=== PATIENT | male | born 1930 | race Caucasian/White ===

== ENCOUNTER 2017-10-21 03:47 | Inpatient (IN) | payer MEDICARE ==
[~2017-10-21] VITALS: Ht 167.6 cm; Wt 71.6 kg
[~2017-10-21 03:47] MED LIST: OMEP40CA37 PO; ONDA4TAB6 PO
[2017-10-21 04:12] LABS: BASOPHILS % (AUTO) 0.1 % (0-1); EOSINOPHILS % (AUTO) 0.4 % (0-6); HEMATOCRIT 39.6 % (42.0-52.0); HEMOGLOBIN 13.4 g/dl (14.0-17.9); LYMPHOCYTES # (AUTO) 0.3 X10'3 (1.1-4.8); LYMPHOCYTES % (AUTO) 3.3 % (21-51); MEAN CORPUSCULAR HGB CONC 33.9 % (33.0-36.5); MEAN CORPUSCULAR VOLUME 100.1 FL (78-98); MEAN PLATELET VOLUME 9.6 FL (7.4-10.4); MONOCYTES # (AUTO) 0.4 X10'3 (0-0.9); MONOCYTES % (AUTO) 4.3 % (2-12); NEUTROPHILS # (AUTO) 9.6 X10'3 (1.8-7.7); NEUTROPHILS % (AUTO) 91.9 % (42-75); PLATELET COUNT 148 X10'3 (140-440); RED BLOOD COUNT 3.96 X10'6 (4.70-6.10); RED CELL DISTRIBUTION WIDTH 14.4 % (11.5-14.5); WHITE BLOOD COUNT 10.4 X10'3 (4.5-11.0)
[2017-10-21 04:26] LABS: ALANINE AMINOTRANSFERASE 94 U/L (12-78); ALBUMIN 3.3 G/DL (3.4-5.0); ALBUMIN/GLOBULIN RATIO 0.9 (1.1-1.5); ALKALINE PHOSPHATASE 180 IU/L (46-116); ANION GAP 7 (8-16); ASPARTATE AMINO TRANSFERASE 208 U/L (10-37); BILIRUBIN,TOTAL 1.9 MG/DL (0.1-1.0); BLOOD UREA NITROGEN 13 MG/DL (7-18); CHLORIDE 103 MMOL/L (99-107); CREATININE 0.93 MG/DL (0.60-1.10); GLUCOSE 138 MG/DL (70-104); MAGNESIUM 2.2 MG/DL (1.5-2.4); POTASSIUM 3.3 MMOL/L (3.5-5.1); SODIUM 140 MMOL/L (135-145); TOTAL CARBON DIOXIDE 30.1 MMOL/L (24-32); TOTAL PROTEIN 6.8 G/DL (6.4-8.2); eGFR 77 ML/MIN
[2017-10-21] MEDS ORDERED: iohexol 300mg/ml 100ml inj. ONE (04:41)
[2017-10-21 04:51] LABS: CLARITY,URINE CLEAR (Clear); COLOR,URINE YELLOW (Yellow); GLUCOSE, URINE NEGATIVE (Neg); KETONES,URINE NEGATIVE (Neg); LEUKOCYTE ESTERASE ,URINE NEGATIVE (Neg); NITRITES, URINE NEGATIVE (Neg); OCCULT BLOOD,URINE TRACE-LYSED (Neg); PROTEIN,URINE TRACE mg/dl (Neg)
[2017-10-21 05:06] LABS: UA COLLECTION TYPE CLN CATCH MIDSTREAM
[2017-10-21 05:29] LABS: BACTERIA,URINE FEW /HPF (Neg); MUCUS STRANDS FEW /LPF (Neg); SQUAMOUS EPITHELIAL CELL,UR FEW /LPF (FEW); WBC,URINE 0-4 /HPF (0-4)
[2017-10-21] MEDS ORDERED: normal saline 1000ML IV soln IVB ONE ×2 (06:05→06:30)
[2017-10-21] MEDS ORDERED: piperacillin/tazo 3.375gm/50ml 50 ML IV ONE (06:25)
[2017-10-21] MEDS ORDERED: bisacodyl 10mg suppository rectal RC ONE (06:25)
[2017-10-21] MEDS ORDERED: normal saline 1000ml 1,000 ML IV ONE (06:27)
[2017-10-21] MEDS ORDERED: morphine 4 MG/ML inj SYRINge IV PRN (06:40)
[2017-10-21] MEDS ORDERED: potassium 10mEq/100ml NS w/LIDOcaine (10mg/bag) IV ONE (06:45)
[2017-10-21 06:55] LABS: LIPASE 8130 U/L (73-393)
[2017-10-21] MEDS ORDERED: magnesium 4gm in 100ml NS 100 ML IV PRN (07:10)
[2017-10-21] MEDS ORDERED: magnesium 1gm/100ml D5W IVPB 50 ML IV PRN (07:10)
[2017-10-21] MEDS ORDERED: ondansetron/PF 4mg/2ml inj IV PRN (07:10)
[2017-10-21] MEDS ORDERED: potassium Cl 40MEQ/NS 500ml 500 ML IV PRN ×2 (07:10)
[2017-10-21] MEDS ORDERED: acetaminophen 650mg rectal suppository RC PRN (07:10)
[2017-10-21] MEDS ORDERED: bisacodyl 10mg suppository rectal RC PRN (07:10)
[2017-10-21] MEDS ORDERED: SYN0.088T PO (07:11)
[2017-10-21] MEDS ORDERED: [UNRECOGNIZED DRUG - REMARK] PO (07:11)
[2017-10-21] MEDS ORDERED: TAMS0.4C32 PO (07:40)
[2017-10-21] MEDS: K and/or MAG REPLACEMENT MC SCH (08:00)
[2017-10-21] MEDS: piperacillin/tazo 3.375gm/50ml 50 ML IV SCH ×2 (08:00→16:00)
[2017-10-21] MEDS ORDERED: sincalide inj 1.36 MCG in normal saline 50ml IV soln 50 ML IV ONE (08:00)
[2017-10-21 09:30] VITALS: BP 142/76
[2017-10-21] MEDS: heparin, porcine 5000 units/ml vial SQ SCH ×2 (10:00→16:00)
[2017-10-21] MEDS: normal saline 1000ml 1,000 ML IV SCH ×4 (10:45→22:07)
[2017-10-21 11:00] VITALS: BP 106/70
[2017-10-21 11:36] LABS: LIPASE 6420 U/L (73-393)
[2017-10-21] MEDS ORDERED: morphine 4 MG/ML inj SYRINge IV ONE (14:55)
[2017-10-21] MEDS ORDERED: morphine 2 MG/ML inj. syringe ONE (14:58)
[2017-10-21 15:00] VITALS: BP 122/59
[2017-10-21] MEDS ORDERED: morphine 2 MG/ML inj. syringe IV ONE (15:20)
[2017-10-21] MEDS: lactobacillus rhamnosus 10,000 MMU CELLS/CAPSULE PO SCH (20:00)
[2017-10-21] MEDS: tamsulosin 0.4mg capsule PO SCH (20:20)
[2017-10-21 23:00] VITALS: BP 102/58
[2017-10-22] VITALS (15 sets, daily range): BP systolic 96–138; BP diastolic 41–89
[2017-10-22] MEDS: piperacillin/tazo 3.375gm/50ml 50 ML IV SCH ×4 (00:01→23:39)
[2017-10-22] MEDS: heparin, porcine 5000 units/ml vial SQ SCH ×4 (00:01→23:51)
[2017-10-22] MEDS: normal saline 1000ml 1,000 ML IV SCH (02:37)
[2017-10-22 05:43] LABS: BASOPHILS % (AUTO) 0.5 % (0-1); EOSINOPHILS # (AUTO) 0.1 X10'3 (0-0.9); EOSINOPHILS % (AUTO) 2.3 % (0-6); HEMOGLOBIN 11.1 g/dl (14.0-17.9); LYMPHOCYTES # (AUTO) 0.6 X10'3 (1.1-4.8); MEAN CORPUSCULAR HEMOGLOBIN 33.6 PG (27.0-31.0); MEAN CORPUSCULAR HGB CONC 33.7 % (33.0-36.5); MEAN CORPUSCULAR VOLUME 99.8 FL (78-98); MEAN PLATELET VOLUME 10.3 FL (7.4-10.4); MONOCYTES # (AUTO) 0.3 X10'3 (0-0.9); NEUTROPHILS # (AUTO) 4.6 X10'3 (1.8-7.7); NEUTROPHILS % (AUTO) 81.2 % (42-75); PLATELET COUNT 116 X10'3 (140-440); RED BLOOD COUNT 3.31 X10'6 (4.70-6.10); RED CELL DISTRIBUTION WIDTH 14.9 % (11.5-14.5); WHITE BLOOD COUNT 5.7 X10'3 (4.5-11.0)
[2017-10-22 05:58] LABS: ALANINE AMINOTRANSFERASE 310 U/L (12-78); ALBUMIN 2.5 G/DL (3.4-5.0); ALBUMIN/GLOBULIN RATIO 0.8 (1.1-1.5); ALKALINE PHOSPHATASE 214 IU/L (46-116); ANION GAP 7 (8-16); ASPARTATE AMINO TRANSFERASE 320 U/L (10-37); BILIRUBIN,TOTAL 1.8 MG/DL (0.1-1.0); BLOOD UREA NITROGEN 21 MG/DL (7-18); BUN/CREATININE RATIO 24.7 (5.4-32.0); CALCIUM 7.5 MG/DL (8.5-10.1); CHLORIDE 108 MMOL/L (99-107); CREATININE 0.85 MG/DL (0.60-1.10); GLUCOSE 67 MG/DL (70-104); LIPASE 814 U/L (73-393); MAGNESIUM 1.8 MG/DL (1.5-2.4); POTASSIUM 3.4 MMOL/L (3.5-5.1); SODIUM 141 MMOL/L (135-145); TOTAL CARBON DIOXIDE 26.2 MMOL/L (24-32); TOTAL PROTEIN 5.6 G/DL (6.4-8.2); eGFR 85 ML/MIN
[2017-10-22] MEDS: lactobacillus rhamnosus 10,000 MMU CELLS/CAPSULE PO SCH ×2 (07:25→20:36)
[2017-10-22] MEDS: levoTHYROXINE 25mcg tablet PO SCH (07:26)
[2017-10-22] MEDS: K and/or MAG REPLACEMENT MC SCH (08:00)
[2017-10-22] MEDS ORDERED: MIDAZolam 5mg/5ml vial ONE (14:55)
[2017-10-22] MEDS ORDERED: fentaNYL/PF 50MCG/1 ML 2ML syringe ONE ×2 (14:55→16:15)
[2017-10-22] MEDS ORDERED: LIDOcaine Viscous 15ml cup ONE (14:55)
[2017-10-22] MEDS ORDERED: iohexol 300 MG/1 ML 50ml polymer ONE (14:56)
[2017-10-22] MEDS ORDERED: glucagon, human recombinant 1mg kit ONE (14:56)
[2017-10-22] MEDS: tamsulosin 0.4mg capsule PO SCH (20:36)
[2017-10-23 03:00] VITALS: BP 95/52
[2017-10-23 05:53] LABS: BASOPHILS % (AUTO) 0.3 % (0-1); EOSINOPHILS # (AUTO) 0.1 X10'3 (0-0.9); EOSINOPHILS % (AUTO) 1.8 % (0-6); HEMATOCRIT 32.2 % (42.0-52.0); HEMOGLOBIN 10.9 g/dl (14.0-17.9); LYMPHOCYTES # (AUTO) 0.5 X10'3 (1.1-4.8); LYMPHOCYTES % (AUTO) 10.5 % (21-51); MEAN CORPUSCULAR HEMOGLOBIN 33.7 PG (27.0-31.0); MEAN CORPUSCULAR HGB CONC 33.7 % (33.0-36.5); MEAN CORPUSCULAR VOLUME 100.2 FL (78-98); MEAN PLATELET VOLUME 10.5 FL (7.4-10.4); MONOCYTES # (AUTO) 0.4 X10'3 (0-0.9); MONOCYTES % (AUTO) 7.3 % (2-12); NEUTROPHILS # (AUTO) 4.2 X10'3 (1.8-7.7); NEUTROPHILS % (AUTO) 80.1 % (42-75); PLATELET COUNT 114 X10'3 (140-440); RED BLOOD COUNT 3.22 X10'6 (4.70-6.10); RED CELL DISTRIBUTION WIDTH 14.7 % (11.5-14.5); WHITE BLOOD COUNT 5.2 X10'3 (4.5-11.0)
[2017-10-23 06:00] VITALS: BP 137/68
[2017-10-23 06:09] LABS: ALANINE AMINOTRANSFERASE 212 U/L (12-78); ALBUMIN 2.5 G/DL (3.4-5.0); ALBUMIN/GLOBULIN RATIO 0.8 (1.1-1.5); ALKALINE PHOSPHATASE 177 IU/L (46-116); ANION GAP 8 (8-16); ASPARTATE AMINO TRANSFERASE 151 U/L (10-37); BILIRUBIN,TOTAL 0.9 MG/DL (0.1-1.0); BLOOD UREA NITROGEN 28 MG/DL (7-18); BUN/CREATININE RATIO 30.8 (5.4-32.0); CALCIUM 7.3 MG/DL (8.5-10.1); CHLORIDE 111 MMOL/L (99-107); CREATININE 0.91 MG/DL (0.60-1.10); GLUCOSE 103 MG/DL (70-104); LIPASE 177 U/L (73-393); MAGNESIUM 1.7 MG/DL (1.5-2.4); POTASSIUM 3.9 MMOL/L (3.5-5.1); SODIUM 144 MMOL/L (135-145); TOTAL CARBON DIOXIDE 24.8 MMOL/L (24-32); TOTAL PROTEIN 5.5 G/DL (6.4-8.2); eGFR 79 ML/MIN
[2017-10-23 06:35] LABS: PLATELET ESTIMATE DECREASED
[2017-10-23] MEDS: lactobacillus rhamnosus 10,000 MMU CELLS/CAPSULE PO SCH ×2 (07:44→20:30)
[2017-10-23] MEDS: piperacillin/tazo 3.375gm/50ml 50 ML IV SCH ×3 (07:44→23:50)
[2017-10-23] MEDS: levoTHYROXINE 25mcg tablet PO SCH (07:45)
[2017-10-23] MEDS: heparin, porcine 5000 units/ml vial SQ SCH ×3 (07:46→23:49)
[2017-10-23] MEDS: K and/or MAG REPLACEMENT MC SCH (08:00)
[2017-10-23] MEDS ORDERED: polyethylene glycol 3350 17gm powd pack PO PRN (10:05)
[2017-10-23 11:00] VITALS: BP 120/60
[2017-10-23 15:00] VITALS: BP 134/84
[2017-10-23 19:00] VITALS: BP 121/81
[2017-10-23] MEDS: tamsulosin 0.4mg capsule PO SCH (20:30)
[2017-10-23 23:00] VITALS: BP 97/54
[2017-10-24 03:00] VITALS: BP 96/70
[2017-10-24 05:48] LABS: BASOPHILS % (AUTO) 0.6 % (0-1); EOSINOPHILS # (AUTO) 0.3 X10'3 (0-0.9); EOSINOPHILS % (AUTO) 6.3 % (0-6); HEMATOCRIT 33.6 % (42.0-52.0); HEMOGLOBIN 11.5 g/dl (14.0-17.9); LYMPHOCYTES # (AUTO) 0.7 X10'3 (1.1-4.8); LYMPHOCYTES % (AUTO) 14.9 % (21-51); MEAN CORPUSCULAR HEMOGLOBIN 33.8 PG (27.0-31.0); MEAN CORPUSCULAR HGB CONC 34.2 % (33.0-36.5); MEAN CORPUSCULAR VOLUME 98.9 FL (78-98); MEAN PLATELET VOLUME 10.1 FL (7.4-10.4); MONOCYTES # (AUTO) 0.4 X10'3 (0-0.9); MONOCYTES % (AUTO) 7.9 % (2-12); NEUTROPHILS # (AUTO) 3.3 X10'3 (1.8-7.7); NEUTROPHILS % (AUTO) 70.3 % (42-75); PLATELET COUNT 122 X10'3 (140-440); RED CELL DISTRIBUTION WIDTH 14.7 % (11.5-14.5); WHITE BLOOD COUNT 4.7 X10'3 (4.5-11.0)
[2017-10-24 05:52] LABS: ALANINE AMINOTRANSFERASE 168 U/L (12-78); ALBUMIN 2.7 G/DL (3.4-5.0); ALBUMIN/GLOBULIN RATIO 0.9 (1.1-1.5); ALKALINE PHOSPHATASE 167 IU/L (46-116); ANION GAP 5 (8-16); ASPARTATE AMINO TRANSFERASE 88 U/L (10-37); BLOOD UREA NITROGEN 18 MG/DL (7-18); BUN/CREATININE RATIO 21.2 (5.4-32.0); CALCIUM 8.2 MG/DL (8.5-10.1); CHLORIDE 108 MMOL/L (99-107); CREATININE 0.85 MG/DL (0.60-1.10); GLUCOSE 98 MG/DL (70-104); LIPASE 147 U/L (73-393); MAGNESIUM 1.7 MG/DL (1.5-2.4); POTASSIUM 3.9 MMOL/L (3.5-5.1); SODIUM 141 MMOL/L (135-145); TOTAL CARBON DIOXIDE 27.7 MMOL/L (24-32); TOTAL PROTEIN 5.8 G/DL (6.4-8.2); eGFR 85 ML/MIN
[2017-10-24 06:00] VITALS: BP 117/64
[2017-10-24] MEDS: K and/or MAG REPLACEMENT MC SCH (08:00)
[2017-10-24] MEDS: levoTHYROXINE 25mcg tablet PO SCH (08:43)
[2017-10-24] MEDS: piperacillin/tazo 3.375gm/50ml 50 ML IV SCH ×2 (08:43→16:49)
[2017-10-24] MEDS: heparin, porcine 5000 units/ml vial SQ SCH ×2 (08:44→16:00)
[2017-10-24] MEDS: lactobacillus rhamnosus 10,000 MMU CELLS/CAPSULE PO SCH ×2 (08:44→20:06)
[2017-10-24 11:00] VITALS: BP 119/66
[2017-10-24] MEDS ORDERED: ceFAZolin 1GM/D5W- ADD-VANTAGE 50 ML IV ONE (11:17)
[2017-10-24] MEDS ORDERED: ceFAZolin 1000mg inj ONE (11:17)
[2017-10-24] MEDS ORDERED: LIDOcaine 1% w/EPI 1:100,000 30ml vial (MDV) ONE (11:17)
[2017-10-24] MEDS ORDERED: midazolam 2 mg/2 ml injection ONE (11:17)
[2017-10-24] MEDS ORDERED: fentaNYL/PF 50MCG/1 ML 2ML syringe ONE (11:17)
[2017-10-24] MEDS ORDERED: verapamil 2.5 mg/ml inj IV ONE (12:41)
[2017-10-24 18:00] VITALS: BP 107/66
[2017-10-24] MEDS: tamsulosin 0.4mg capsule PO SCH (20:06)
[2017-10-24 22:00] VITALS: BP 119/76
[2017-10-24] MEDS: morphine 4 MG/ML inj SYRINge IV PRN (22:20)
[2017-10-25] VITALS (18 sets, daily range): BP systolic 105–154; BP diastolic 60–105
[2017-10-25] MEDS: piperacillin/tazo 3.375gm/50ml 50 ML IV SCH ×3 (00:09→16:05)
[2017-10-25] MEDS: heparin, porcine 5000 units/ml vial SQ SCH ×3 (00:10→16:00)
[2017-10-25 06:01] LABS: ALANINE AMINOTRANSFERASE 135 U/L (12-78); ALBUMIN 2.7 G/DL (3.4-5.0); ALBUMIN/GLOBULIN RATIO 0.8 (1.1-1.5); ALKALINE PHOSPHATASE 156 IU/L (46-116); ANION GAP 8 (8-16); ASPARTATE AMINO TRANSFERASE 55 U/L (10-37); BILIRUBIN,TOTAL 0.8 MG/DL (0.1-1.0); BLOOD UREA NITROGEN 18 MG/DL (7-18); CALCIUM 7.6 MG/DL (8.5-10.1); CHLORIDE 106 MMOL/L (99-107); GLUCOSE 111 MG/DL (70-104); MAGNESIUM 1.4 MG/DL (1.5-2.4); POTASSIUM 3.8 MMOL/L (3.5-5.1); SODIUM 142 MMOL/L (135-145); TOTAL PROTEIN 5.9 G/DL (6.4-8.2); eGFR 80 ML/MIN
[2017-10-25 06:42] LABS: BASOPHILS % (AUTO) 0.5 % (0-1); EOSINOPHILS % (AUTO) 2.8 % (0-6); HEMATOCRIT 31.4 % (42.0-52.0); HEMOGLOBIN 10.6 g/dl (14.0-17.9); LYMPHOCYTES % (AUTO) 9.2 % (21-51); MEAN CORPUSCULAR HEMOGLOBIN 33.7 PG (27.0-31.0); MEAN CORPUSCULAR HGB CONC 33.9 % (33.0-36.5); MEAN CORPUSCULAR VOLUME 99.3 FL (78-98); MEAN PLATELET VOLUME 9.9 FL (7.4-10.4); MONOCYTES % (AUTO) 8.5 % (2-12); NEUTROPHILS # (AUTO) 4.5 X10'3 (1.8-7.7); PLATELET COUNT 130 X10'3 (140-440); RED BLOOD COUNT 3.16 X10'6 (4.70-6.10); RED CELL DISTRIBUTION WIDTH 14.4 % (11.5-14.5); WHITE BLOOD COUNT 5.7 X10'3 (4.5-11.0)
[2017-10-25 06:43] LABS: EOSINOPHILS # (AUTO) 0.2 X10'3 (0-0.9); LYMPHOCYTES # (AUTO) 0.5 X10'3 (1.1-4.8); MONOCYTES # (AUTO) 0.5 X10'3 (0-0.9)
[2017-10-25] MEDS: lactobacillus rhamnosus 10,000 MMU CELLS/CAPSULE PO SCH ×2 (07:49→20:57)
[2017-10-25] MEDS: levoTHYROXINE 25mcg tablet PO SCH (07:49)
[2017-10-25] MEDS: K and/or MAG REPLACEMENT MC SCH (08:00)
[2017-10-25] MEDS ORDERED: iohexol 300mg/ml 100ml inj. ONE (09:42)
[2017-10-25] MEDS ORDERED: fentaNYL/PF 50MCG/1 ML 2ML syringe IV PRN (13:55)
[2017-10-25] MEDS ORDERED: LIDOcaine 1%/PF 5ML 10 MG/ML VIAL SQ ONE (13:55)
[2017-10-25] MEDS ORDERED: midazolam 2 mg/2 ml injection IV PRN (13:55)
[2017-10-25] MEDS ORDERED: midazolam 2 mg/2 ml injection ONE (14:10)
[2017-10-25] MEDS ORDERED: fentaNYL/PF 50MCG/1 ML 2ML syringe ONE (14:11)
[2017-10-25] MEDS ORDERED: LIDOcaine 1%/PF 5ML 10 MG/ML VIAL ONE ×2 (14:27→14:49)
[2017-10-25] MEDS ORDERED: LIDOcaine 1% (10mg/ml) 2ml vial ONE (14:50)
[2017-10-25] MEDS: morphine 4 MG/ML inj SYRINge IV PRN (17:43)
[2017-10-25] MEDS: ceFAZolin 1GM/D5W- ADD-VANTAGE 50 ML IV SCH (20:54)
[2017-10-25] MEDS: tamsulosin 0.4mg capsule PO SCH (20:56)
[2017-10-25] MEDS: HYDROcodone/acetaminophen 10/325mg tab PO PRN (20:58)
[2017-10-25] MEDS: magnesium Cl slow-release 64mg tablet PO PRN (21:23)
[2017-10-26] MEDS: piperacillin/tazo 3.375gm/50ml 50 ML IV SCH ×4 (00:39→23:51)
[2017-10-26] MEDS: heparin, porcine 5000 units/ml vial SQ SCH ×4 (00:39→23:51)
[2017-10-26 03:00] VITALS: BP 105/62
[2017-10-26] MEDS: ceFAZolin 1GM/D5W- ADD-VANTAGE 50 ML IV SCH ×2 (03:34→10:57)
[2017-10-26 05:31] LABS: BASOPHILS % (AUTO) 0 % (0-1); EOSINOPHILS % (AUTO) 0.4 % (0-6); HEMATOCRIT 30.9 % (42.0-52.0); HEMOGLOBIN 10.4 g/dl (14.0-17.9); LYMPHOCYTES # (AUTO) 0.5 X10'3 (1.1-4.8); LYMPHOCYTES % (AUTO) 6.4 % (21-51); MEAN CORPUSCULAR HEMOGLOBIN 33.5 PG (27.0-31.0); MEAN CORPUSCULAR HGB CONC 33.6 % (33.0-36.5); MEAN CORPUSCULAR VOLUME 99.8 FL (78-98); MEAN PLATELET VOLUME 9.7 FL (7.4-10.4); MONOCYTES # (AUTO) 0.4 X10'3 (0-0.9); MONOCYTES % (AUTO) 5.5 % (2-12); NEUTROPHILS # (AUTO) 6.9 X10'3 (1.8-7.7); NEUTROPHILS % (AUTO) 87.7 % (42-75); PLATELET COUNT 117 X10'3 (140-440); WHITE BLOOD COUNT 7.9 X10'3 (4.5-11.0)
[2017-10-26 05:49] LABS: ALANINE AMINOTRANSFERASE 92 U/L (12-78); ALBUMIN 2.4 G/DL (3.4-5.0); ALBUMIN/GLOBULIN RATIO 0.7 (1.1-1.5); ALKALINE PHOSPHATASE 127 IU/L (46-116); ANION GAP 5 (8-16); ASPARTATE AMINO TRANSFERASE 37 U/L (10-37); BILIRUBIN,TOTAL 0.6 MG/DL (0.1-1.0); BLOOD UREA NITROGEN 16 MG/DL (7-18); BUN/CREATININE RATIO 19.5 (5.4-32.0); CALCIUM 7.5 MG/DL (8.5-10.1); CHLORIDE 104 MMOL/L (99-107); CREATININE 0.82 MG/DL (0.60-1.10); GLUCOSE 126 MG/DL (70-104); MAGNESIUM 1.5 MG/DL (1.5-2.4); POTASSIUM 3.5 MMOL/L (3.5-5.1); SODIUM 140 MMOL/L (135-145); TOTAL CARBON DIOXIDE 31.1 MMOL/L (24-32); TOTAL PROTEIN 5.7 G/DL (6.4-8.2); eGFR 89 ML/MIN
[2017-10-26 06:51] VITALS: BP 117/63
[2017-10-26] MEDS ORDERED: potassium Cl 40MEQ/NS 500ml 500 ML IV PRN ×2 (08:05)
[2017-10-26] MEDS ORDERED: potassium Cl 20 mEq SR tablet PO PRN (08:05)
[2017-10-26] MEDS: levoTHYROXINE 25mcg tablet PO SCH (08:15)
[2017-10-26] MEDS: magnesium Cl slow-release 64mg tablet PO PRN (08:15)
[2017-10-26] MEDS: lactobacillus rhamnosus 10,000 MMU CELLS/CAPSULE PO SCH ×2 (08:16→20:27)
[2017-10-26] MEDS: potassium Cl 20 mEq SR tablet PO PRN ×2 (08:16→15:57)
[2017-10-26] MEDS: HYDROcodone/acetaminophen 5mg/325mg tablet PO PRN ×2 (08:16→15:57)
[2017-10-26] MEDS: K and/or MAG REPLACEMENT MC SCH (08:16)
[2017-10-26] MEDS ORDERED: potassium Cl 20 mEq SR tablet PO STA (09:28)
[2017-10-26] MEDS ORDERED: furosemide 40mg/4ml inj IV ONE (09:30)
[2017-10-26 11:00] VITALS: BP 92/50
[2017-10-26 15:00] VITALS: BP 119/60
[2017-10-26 19:00] VITALS: BP 101/63
[2017-10-26] MEDS: tamsulosin 0.4mg capsule PO SCH (20:27)
[2017-10-26 23:00] VITALS: BP 102/61
[2017-10-26] MEDS: morphine 4 MG/ML inj SYRINge IV PRN (23:56)
[2017-10-27 03:00] VITALS: BP 102/61
[2017-10-27 05:28] LABS: BASOPHILS % (AUTO) 0.4 % (0-1); EOSINOPHILS # (AUTO) 0.2 X10'3 (0-0.9); EOSINOPHILS % (AUTO) 3.4 % (0-6); HEMATOCRIT 30.5 % (42.0-52.0); HEMOGLOBIN 10.5 g/dl (14.0-17.9); LYMPHOCYTES # (AUTO) 0.6 X10'3 (1.1-4.8); LYMPHOCYTES % (AUTO) 9.5 % (21-51); MEAN CORPUSCULAR HEMOGLOBIN 34.2 PG (27.0-31.0); MEAN CORPUSCULAR HGB CONC 34.5 % (33.0-36.5); MEAN CORPUSCULAR VOLUME 99.2 FL (78-98); MEAN PLATELET VOLUME 10.4 FL (7.4-10.4); MONOCYTES # (AUTO) 0.4 X10'3 (0-0.9); MONOCYTES % (AUTO) 6.3 % (2-12); NEUTROPHILS # (AUTO) 5.2 X10'3 (1.8-7.7); NEUTROPHILS % (AUTO) 80.4 % (42-75); PLATELET COUNT 125 X10'3 (140-440); RED BLOOD COUNT 3.08 X10'6 (4.70-6.10); RED CELL DISTRIBUTION WIDTH 14.3 % (11.5-14.5); WHITE BLOOD COUNT 6.5 X10'3 (4.5-11.0)
[2017-10-27 05:56] LABS: ALANINE AMINOTRANSFERASE 62 U/L (12-78); ALBUMIN 2.4 G/DL (3.4-5.0); ALBUMIN/GLOBULIN RATIO 0.7 (1.1-1.5); ALKALINE PHOSPHATASE 130 IU/L (46-116); ANION GAP 3 (8-16); ASPARTATE AMINO TRANSFERASE 28 U/L (10-37); BILIRUBIN,TOTAL 0.5 MG/DL (0.1-1.0); BLOOD UREA NITROGEN 17 MG/DL (7-18); BUN/CREATININE RATIO 22.7 (5.4-32.0); CALCIUM 7.8 MG/DL (8.5-10.1); CHLORIDE 102 MMOL/L (99-107); CREATININE 0.75 MG/DL (0.60-1.10); GLUCOSE 109 MG/DL (70-104); MAGNESIUM 1.5 MG/DL (1.5-2.4); POTASSIUM 3.7 MMOL/L (3.5-5.1); SODIUM 139 MMOL/L (135-145); TOTAL CARBON DIOXIDE 33.6 MMOL/L (24-32); TOTAL PROTEIN 5.9 G/DL (6.4-8.2); eGFR > 90 ML/MIN
[2017-10-27 06:52] VITALS: BP 125/97
[2017-10-27] MEDS: lactobacillus rhamnosus 10,000 MMU CELLS/CAPSULE PO SCH ×2 (07:17→20:45)
[2017-10-27] MEDS: piperacillin/tazo 3.375gm/50ml 50 ML IV SCH ×3 (07:18→23:08)
[2017-10-27] MEDS: levoTHYROXINE 25mcg tablet PO SCH (07:18)
[2017-10-27] MEDS: heparin, porcine 5000 units/ml vial SQ SCH ×3 (07:24→23:08)
[2017-10-27] MEDS: K and/or MAG REPLACEMENT MC SCH (07:50)
[2017-10-27 08:12] LABS: LARGE PLATELETS FEW; PLATELET ESTIMATE DECREASED
[2017-10-27] MEDS: morphine 4 MG/ML inj SYRINge IV PRN ×3 (08:12→20:46)
[2017-10-27 11:00] VITALS: BP_SYST 108; BP_SYST 117; BP_DIAS 57; BP_DIAS 63
[2017-10-27 15:00] VITALS: BP 105/60
[2017-10-27 19:00] VITALS: BP 152/74
[2017-10-27] MEDS: tamsulosin 0.4mg capsule PO SCH (20:45)
[2017-10-27 23:00] VITALS: BP 107/67
[2017-10-28 03:00] VITALS: BP 123/66
[2017-10-28 06:11] LABS: MAGNESIUM 1.6 MG/DL (1.5-2.4); POTASSIUM 3.8 MMOL/L (3.5-5.1)
[2017-10-28 07:00] VITALS: BP 138/73
[2017-10-28] MEDS: heparin, porcine 5000 units/ml vial SQ SCH (07:32)
[2017-10-28] MEDS: K and/or MAG REPLACEMENT MC SCH (07:32)
[2017-10-28] MEDS: lactobacillus rhamnosus 10,000 MMU CELLS/CAPSULE PO SCH (07:35)
[2017-10-28] MEDS: levoTHYROXINE 25mcg tablet PO SCH (07:35)
[2017-10-28] MEDS: HYDROcodone/acetaminophen 10/325mg tab PO PRN (07:36)
[2017-10-28] MEDS: piperacillin/tazo 3.375gm/50ml 50 ML IV SCH (07:37)
[2017-10-28 11:00] VITALS: BP 92/51
[2017-10-28] MEDS ORDERED: AMOX-422 PO (11:46)
== END 2017-10-28 13:40 | disposition home health service (06) | DRG 242 ==
LOC: ER 03:48 → ED HOLD 07:07 → PCU 3S 09:15
PROVIDERS: ADMIT Family Medicine; ATTEND Family Medicine
PROC: BW211ZZ Computerized Tomography (CT Scan) of Abdomen and Pelvis using Low Osmolar Contrast (ICD-10-PCS; 2017-10-21)
PROC: CF241ZZ Tomographic (Tomo) Nuclear Medicine Imaging of Gallbladder using Technetium 99m (Tc-99m) (ICD-10-PCS; 2017-10-21)
PROC: 0FJD8ZZ Inspection of Pancreatic Duct, Via Natural or Artificial Opening Endoscopic (ICD-10-PCS; 2017-10-22)
PROC: BF181ZZ Fluoroscopy of Pancreatic Ducts using Low Osmolar Contrast (ICD-10-PCS; 2017-10-22)
PROC: 0JH606Z Insertion of Pacemaker, Dual Chamber into Chest Subcutaneous Tissue and Fascia, Open Approach (ICD-10-PCS; 2017-10-24)
PROC: 02H63JZ Insertion of Pacemaker Lead into Right Atrium, Percutaneous Approach (ICD-10-PCS; 2017-10-24)
PROC: 02HK3JZ Insertion of Pacemaker Lead into Right Ventricle, Percutaneous Approach (ICD-10-PCS; 2017-10-24)
PROC: 0F9430Z Drainage of Gallbladder with Drainage Device, Percutaneous Approach (ICD-10-PCS; principal; 2017-10-25)
PROC: BW211ZZ Computerized Tomography (CT Scan) of Abdomen and Pelvis using Low Osmolar Contrast (ICD-10-PCS; 2017-10-25)
DX: I49.5 Sick sinus syndrome (principal); K85.10 Biliary acute pancreatitis without necrosis or infection; K80.00 Calculus of gallbladder with acute cholecystitis without obstruction; E89.0 Postprocedural hypothyroidism; Z96.653 Presence of artificial knee joint, bilateral; K59.00 Constipation, unspecified; K21.9 Gastro-esophageal reflux disease without esophagitis; K57.90 Diverticulosis of intestine, part unspecified, without perforation or abscess without bleeding; M19.90 Unspecified osteoarthritis, unspecified site; R74.0 Nonspecific elevation of levels of transaminase and lactic acid dehydrogenase [LDH]; K83.8 Other specified diseases of biliary tract; I27.20 Pulmonary hypertension, unspecified; R79.89 Other specified abnormal findings of blood chemistry; N40.0 Benign prostatic hyperplasia without lower urinary tract symptoms; Z79.899 Other long term (current) drug therapy; Z80.9 Family history of malignant neoplasm, unspecified
CPT/HCPCS: 33208; 36415; 47490; 71045; 71046; 74018; 74177; 74181; 75989; 76700; 78227; 80053; 81001; 83605; 83615; 83690; 83735; 84132; 84145; 84443; 84484; 85025; 86301; 87070; 93005; 93306; 96360; 97110; 97116; 97162; 97530; 99152; 99153; 99285; A4565; A4620; A6257; A6258; A9537; C1729; C1785; C1894; C1898; G0500; J0690; J1610; J1644; J1940; J2001; J2250; J2270; J2543; J2805; J3010; J3480; J3490; J7030; J7040; Q9967

== ENCOUNTER 2018-04-23 15:55 | Inpatient (IN) | payer MEDICARE | END 2018-04-27 14:21 | disposition home or self-care (01) | LOC: ER 15:55 → ED HOLD 19:00 → SUR 3N 04-24 17:45 | DX: J96.01 Acute respiratory failure with hypoxia (principal); J18.9 Pneumonia, unspecified organism; E03.9 Hypothyroidism, unspecified; D64.9 Anemia, unspecified; N40.0 Benign prostatic hyperplasia without lower urinary tract symptoms; I48.91 Unspecified atrial fibrillation ==

== ENCOUNTER 2019-06-03 11:12 | Inpatient (IN) | payer MEDICARE ==
[~2019-06-03] VITALS: Ht 167.6 cm; Wt 65.9 kg
[~2019-06-03 11:12] MED LIST changes: +ACIT10CA2; +AMIO200T62 PO; +CARV-50 PO; +COU1T PO; +DUPI300S INJ; +FURO-150 PO; -OMEP40CA37 PO; -ONDA4TAB6 PO; +POTA20TA19 PO; +SYN0.088T PO; +TAMS0.4C32 PO
[2019-06-03] MEDS ORDERED: aspirin 81mg tab.chew PO ONE (11:35)
[2019-06-03] MEDS ORDERED: ipratropium/albuterol 3ml nebule NEB ONE (11:40)
[2019-06-03 12:08] LABS: BASOPHILS # (AUTO) 0.1 X10'3 (0-0.2); BASOPHILS % (AUTO) 0.7 % (0-1); EOSINOPHILS # (AUTO) 0.1 X10'3 (0-0.9); EOSINOPHILS % (AUTO) 1.5 % (0-6); HEMATOCRIT 37.6 % (42.0-52.0); HEMOGLOBIN 12.6 g/dl (14.0-17.9); LYMPHOCYTES # (AUTO) 0.7 X10'3 (1.1-4.8); LYMPHOCYTES % (AUTO) 8.3 % (21-51); MEAN CORPUSCULAR HEMOGLOBIN 35.9 PG (27.0-31.0); MEAN CORPUSCULAR HGB CONC 33.5 g/dL (33.0-36.5); MEAN CORPUSCULAR VOLUME 107.3 FL (78-98); MONOCYTES # (AUTO) 0.7 X10'3 (0-0.9); MONOCYTES % (AUTO) 8.1 % (2-12); NEUTROPHILS # (AUTO) 7.1 X10'3 (1.8-7.7); NEUTROPHILS % (AUTO) 81.4 % (42-75); PLATELET COUNT 220 X10'3 (140-440); RED CELL DISTRIBUTION WIDTH 16.1 % (11.5-14.5); WHITE BLOOD COUNT 8.7 X10'3 (4.5-11.0)
[2019-06-03 12:24] LABS: PARTIAL THROMBOPLASTIN TIME 31 SECONDS (22-32)
[2019-06-03 12:26] LABS: ALANINE AMINOTRANSFERASE 167 U/L (12-78); ALBUMIN 3.4 G/DL (3.4-5.0); ALKALINE PHOSPHATASE 113 IU/L (46-116); ANION GAP 14 (8-16); ASPARTATE AMINO TRANSFERASE 171 U/L (10-37); BILIRUBIN,TOTAL 0.7 MG/DL (0.1-1.0); BLOOD UREA NITROGEN 62 MG/DL (7-18); BUN/CREATININE RATIO 17.9 (5.4-32.0); CALCIUM 8.7 MG/DL (8.5-10.1); CHLORIDE 106 MMOL/L (99-107); CREATININE 3.47 MG/DL (0.60-1.10); GLUCOSE 134 MG/DL (70-104); SODIUM 139 MMOL/L (135-145); TOTAL CARBON DIOXIDE 18.6 MMOL/L (24-32); TOTAL PROTEIN 6.9 G/DL (6.4-8.2); eGFR 17 ML/MIN
[2019-06-03 12:35] LABS: ABG BASE EXCESS -10.3 mmol/L (-2.0-3.0); ABG HCO3 13.7 mmol/L (22.0-26.0); ABG OXYGEN SATURATION 99.3 % (95-98); ABG PCO2 (T) 27.7 mmHg (35.0-45.0); ABG PO2 (T) 322.5 mmHg (83-108); ALLEN'S TEST POSITIVE; FCOHb 0.3 % (0.5-1.5); FLOW 15 L/min; PATIENT TEMPERATURE 38.7; TOTAL HEMOGLOBIN 12.6 G/dl (14.0-17.9)
[2019-06-03 12:35] LABS: D-DIMER 1.81 MG/L FEU (0-0.50)
[2019-06-03] MEDS ORDERED: normal saline 1000ml 1,000 ML IV ONE (12:35)
[2019-06-03 12:36] LABS: LIPASE 239 U/L (73-393); MAGNESIUM 2.1 MG/DL (1.5-2.4)
[2019-06-03] MEDS ORDERED: normal saline 1000ML IV soln IVB ONE (12:45)
[2019-06-03] MEDS ORDERED: acetaminophen 325mg tablet PO PRN (13:15)
[2019-06-03] MEDS ORDERED: furosemide 10 MG/1 ML 10ml inj IV ONE (13:15)
[2019-06-03] MEDS ORDERED: mag hydrox/Alum hydrox/simeth 30ml oral suspension PO PRN (13:15)
[2019-06-03] MEDS ORDERED: magnesium hydroxide 30ml (MOM) UD suspension PO PRN (13:15)
[2019-06-03] MEDS ORDERED: ondansetron/PF 4mg/2ml inj IV PRN (13:15)
[2019-06-03] MEDS ORDERED: METO25TA6 PO (13:37)
[2019-06-03] MEDS ORDERED: TRIA454O TP (13:37)
[2019-06-03] MEDS ORDERED: FEXO180T94 PO (13:37)
[2019-06-03] MEDS ORDERED: ALLO100T PO (13:37)
[2019-06-03] MEDS ORDERED: SPIR25TA5 PO (13:37)
[2019-06-03] MEDS ORDERED: WARF1TAB PO (13:37)
[2019-06-03] MEDS ORDERED: FERR325T32 PO (13:37)
[2019-06-03] MEDS: normal saline 1000ml 1,000 ML IV SCH ×2 (16:10→20:36)
[2019-06-03 18:00] VITALS: BP 99/68
--- NOTE | 2019-06-03 18:24 | NUR ---
Problems reprioritized. Patient report given, questions answered & plan of care reviewed with Naseem RN.
--- NOTE | 2019-06-03 18:30 | NUR ---
Patient in room PCU 3024. I have received report from Daksha SHETH and had the opportunity to ask questions and assume patient care.
[2019-06-03] MEDS: triamcinolone acetonide 0.1% ointment 15gm TP SCH (20:15)
[2019-06-03] MEDS: tamsulosin 0.4mg capsule PO SCH (20:15)
[2019-06-03] MEDS: metoprolol tartrate 25mg tablet PO SCH (20:17)
[2019-06-03 22:00] VITALS: BP 87/62
[2019-06-04] VITALS (10 sets, daily range): BP systolic 85–129; BP diastolic 53–94
[2019-06-04 05:15] LABS: BASOPHILS # (AUTO) 0.1 X10'3 (0-0.2); BASOPHILS % (AUTO) 0.9 % (0-1); EOSINOPHILS # (AUTO) 0.4 X10'3 (0-0.9); EOSINOPHILS % (AUTO) 5.3 % (0-6); HEMATOCRIT 33.4 % (42.0-52.0); HEMOGLOBIN 11.4 g/dl (14.0-17.9); LYMPHOCYTES # (AUTO) 0.7 X10'3 (1.1-4.8); LYMPHOCYTES % (AUTO) 9.6 % (21-51); MEAN CORPUSCULAR HEMOGLOBIN 36.7 PG (27.0-31.0); MEAN CORPUSCULAR HGB CONC 34.1 g/dL (33.0-36.5); MEAN CORPUSCULAR VOLUME 107.5 FL (78-98); MEAN PLATELET VOLUME 8.9 FL (7.4-10.4); MONOCYTES # (AUTO) 0.6 X10'3 (0-0.9); NEUTROPHILS # (AUTO) 5.4 X10'3 (1.8-7.7); NEUTROPHILS % (AUTO) 76.2 % (42-75); PLATELET COUNT 176 X10'3 (140-440); RED BLOOD COUNT 3.11 X10'6 (4.70-6.10); WHITE BLOOD COUNT 7.1 X10'3 (4.5-11.0)
[2019-06-04 05:29] LABS: ALBUMIN 2.9 G/DL (3.4-5.0); ANION GAP 14 (8-16); BLOOD UREA NITROGEN 58 MG/DL (7-18); BUN/CREATININE RATIO 22.5 (5.4-32.0); CHLORIDE 110 MMOL/L (99-107); CREATININE 2.58 MG/DL (0.60-1.10); GLUCOSE 87 MG/DL (70-104); POTASSIUM 4.7 MMOL/L (3.5-5.1); SODIUM 141 MMOL/L (135-145); TOTAL CARBON DIOXIDE 17.5 MMOL/L (24-32); eGFR 24 ML/MIN
--- NOTE | 2019-06-04 06:28 | NUR ---
Patient in room PCU 3024. I have received report from MERYL Gusman and had the opportunity to ask questions and assume patient care.
--- NOTE | 2019-06-04 06:34 | NUR ---
Problems reprioritized. Patient report given, questions answered & plan of care reviewed with Elisabeth SHETH.
[2019-06-04] MEDS: metoprolol tartrate 25mg tablet PO SCH ×2 (08:00→20:26)
[2019-06-04] MEDS: levoTHYROXINE 88mcg tablet PO SCH (08:15)
[2019-06-04] MEDS: loratadine 10mg tablet PO SCH (08:15)
[2019-06-04] MEDS: allopurinol 100mg tablet PO SCH (08:15)
[2019-06-04] MEDS: amiodarone 200mg tablet PO SCH (08:15)
[2019-06-04] MEDS: ferrous sulfate 325mg tablet PO SCH (08:15)
[2019-06-04] MEDS: triamcinolone acetonide 0.1% ointment 15gm TP SCH ×2 (08:18→20:26)
--- NOTE | 2019-06-04 09:55 | NUR ---
New orders from jens to decrease NS to 50mL/hr
[2019-06-04] MEDS: normal saline 1000ml 1,000 ML IV SCH (10:00)
--- NOTE | 2019-06-04 15:41 | NUR ---
Paged Juan A regarding pt SBP in the 80s PAGER ID: [phone] MESSAGE: [id number]: Steve Saenz: Pts SBP has been in the low-mid 80s multiple times & DBP inaudible manually. Pt alert, oriented and conversing. Kindly advise! -Elisabeth [phone]
[2019-06-04] MEDS ORDERED: DOBUTamine-DoBUTrex 500mg/D5W 250 ML IV SCH (15:50)
--- NOTE | 2019-06-04 18:28 | NUR ---
Problems reprioritized. Patient report given, questions answered & plan of care reviewed with MERYL Rios.
--- NOTE | 2019-06-04 18:30 | NUR ---
Patient in room MED 307. I have received report from Elisabeth SHETH and had the opportunity to ask questions and assume patient care.
[2019-06-04] MEDS: tamsulosin 0.4mg capsule PO SCH (20:39)
--- NOTE | 2019-06-04 23:33 | NUR ---
Problems reprioritized. Patient report given, questions answered & plan of care reviewed with Mk SHETH.
[2019-06-05] VITALS (7 sets, daily range): BP systolic 86–135; BP diastolic 58–79
[2019-06-05 03:37] LABS: BASOPHILS # (AUTO) 0.1 X10'3 (0-0.2); BASOPHILS % (AUTO) 0.9 % (0-1); EOSINOPHILS # (AUTO) 0.5 X10'3 (0-0.9); EOSINOPHILS % (AUTO) 6.6 % (0-6); HEMOGLOBIN 10.6 g/dl (14.0-17.9); LYMPHOCYTES # (AUTO) 0.6 X10'3 (1.1-4.8); LYMPHOCYTES % (AUTO) 9.1 % (21-51); MEAN CORPUSCULAR HEMOGLOBIN 36.8 PG (27.0-31.0); MEAN CORPUSCULAR HGB CONC 34.1 g/dL (33.0-36.5); MEAN CORPUSCULAR VOLUME 108.1 FL (78-98); MEAN PLATELET VOLUME 8.8 FL (7.4-10.4); MONOCYTES # (AUTO) 0.5 X10'3 (0-0.9); MONOCYTES % (AUTO) 7.1 % (2-12); NEUTROPHILS # (AUTO) 5.4 X10'3 (1.8-7.7); NEUTROPHILS % (AUTO) 76.3 % (42-75); PLATELET COUNT 164 X10'3 (140-440); RED BLOOD COUNT 2.86 X10'6 (4.70-6.10); RED CELL DISTRIBUTION WIDTH 16.5 % (11.5-14.5); WHITE BLOOD COUNT 7.1 X10'3 (4.5-11.0)
[2019-06-05 03:45] LABS: ALBUMIN 2.7 G/DL (3.4-5.0); ANION GAP 10 (8-16); BLOOD UREA NITROGEN 47 MG/DL (7-18); BUN/CREATININE RATIO 23.3 (5.4-32.0); CALCIUM 7.7 MG/DL (8.5-10.1); CHLORIDE 112 MMOL/L (99-107); CREATININE 2.02 MG/DL (0.60-1.10); GLUCOSE 103 MG/DL (70-104); POTASSIUM 4.4 MMOL/L (3.5-5.1); SODIUM 142 MMOL/L (135-145); TOTAL CARBON DIOXIDE 19.8 MMOL/L (24-32); eGFR 31 ML/MIN
--- NOTE | 2019-06-05 06:39 | NUR ---
Problems reprioritized. Patient report given Pat-RN, questions answered & plan of care reviewed with .
[2019-06-05] MEDS ORDERED: fentaNYL/PF 50MCG/1 ML 2ML syringe IV ONE (07:40)
[2019-06-05] MEDS ORDERED: MIDAZolam 1mg/ml 10ml vial IV ONE (07:40)
--- NOTE | 2019-06-05 07:42 | NUR ---
EVERETTE AND FENTANYL VIALS ORDERED TO PREP FOR CARDIOVERSION PER DR. CHOE
[2019-06-05] MEDS: triamcinolone acetonide 0.1% ointment 15gm TP SCH (08:00)
[2019-06-05] MEDS: metoprolol tartrate 25mg tablet PO SCH (08:00)
[2019-06-05] MEDS: normal saline 1000ml 1,000 ML IV SCH (09:05)
--- NOTE | 2019-06-05 09:09 | NUR ---
DR. CHOE AT BEDSIDE. PATIENT IN SR/PACED 80s. NO NEED FOR CARDIOVERSION. VERSED/FENTANYL ORDERS CANCELLED
--- NOTE | 2019-06-05 09:22 | NUR ---
DR. SINGER AT BEDSIDE. NEW ORDERS RECEIVED: D/C FLUIDS, D/C DOBUTAMINE
--- NOTE | 2019-06-05 09:30 | NUR ---
DR. SINGER INTO SEE PATIENT.GTT TURNED OFF PER ORDER. PLAN IS TO DISCHARGE PATIENT TODAY. HEARTH RHYTHM CONTINUES AT 100% PACED, RATE CONTROLLED.AM PLAN FOR CARDIOVERSION CANCELLED. Addendum: 06/05/19 at 1611 by Francesca Mena RN Amended: Links added.
--- NOTE | 2019-06-05 09:56 | NUR ---
PATIENT AMBULATED W/ PCT 200 FT, TOLERATED WELL, DENIES PAIN/SOB.
[2019-06-05] MEDS: loratadine 10mg tablet PO SCH (10:29)
[2019-06-05] MEDS: amiodarone 200mg tablet PO SCH (10:29)
[2019-06-05] MEDS: levoTHYROXINE 88mcg tablet PO SCH (10:30)
[2019-06-05] MEDS: ferrous sulfate 325mg tablet PO SCH (10:30)
[2019-06-05] MEDS: allopurinol 100mg tablet PO SCH (10:30)
--- NOTE | 2019-06-05 10:54 | NUR ---
ART FOLLOW UP APPOINTMENT 07/01/2019 @ 8053
--- NOTE | 2019-06-05 13:20 | NUR ---
CASE MANAGEMENT PAGED: [phone]: DEVAUGHN GÓMEZ PT D/C'ING, CALLED TWICE NO ANSWER, MSG LEFT BOTH TIMES, TO COME DIRECTOR FURNITURE PATIENT. SHOULD I OFFER TAXI? PT DOESN'T HAVE MONEY.
--- NOTE | 2019-06-05 14:36 | NUR ---
[facility] DEPARTMENT NOTIFIED THAT WE ARE UNABLE TO GET IN TOUCH WITH PATIENT'S AT HOME. PATIENT HAS DISCHARGE ORDERS AND NEEDS A RIDE HOME. PATIENT AND LIVE ALONE IN [place] ON A [address]. DISPATCH INFORMED THEY WOULD SEND A PATROL CAR TO CHECK ON HER AND CALL US BACK
--- NOTE | 2019-06-05 15:37 | NUR ---
CALLED BACK. SHE WILL COME TO [employer]LE[employer] ADVISOR THE PATIENT SHORTLY
--- NOTE | 2019-06-05 15:37 | NUR ---
DISPATCH CALLED - I INFORMED THEM THAT THE CALLED US BACK AND THAT WE NO LONGER NEED THE WELFARE CHECK.
[2019-06-13] MEDS ORDERED: DUPILUMAB SQ SCH (17:35)
== END 2019-06-05 17:05 | disposition home or self-care (01) | DRG 684 ==
LOC: ER 11:12 → ED HOLD 13:11 → PCU 3S 16:20 → MED 3N 06-04 23:14
PROVIDERS: ADMIT Family Medicine; ATTEND Family Medicine
DX: N17.9 Acute kidney failure, unspecified (principal); R09.02 Hypoxemia; E86.0 Dehydration; I49.9 Cardiac arrhythmia, unspecified; I95.9 Hypotension, unspecified; I48.91 Unspecified atrial fibrillation; N18.9 Chronic kidney disease, unspecified; I50.9 Heart failure, unspecified; N40.0 Benign prostatic hyperplasia without lower urinary tract symptoms; E03.9 Hypothyroidism, unspecified; Z88.2 Allergy status to sulfonamides; Z95.0 Presence of cardiac pacemaker; Z88.8 Allergy status to other drugs, medicaments and biological substances
CPT/HCPCS: 36415; 36600; 71045; 80048; 80053; 82803; 83605; 83690; 83735; 83880; 84443; 84484; 85018; 85025; 85379; 85610; 85730; 87040; 87081; 87502; 87503; 93005; 93306; 99285; G0378; J1250; J7030